=== PATIENT | male | born 1970 | race Caucasian/White ===

== ENCOUNTER 2016-10-26 16:14 | Emergency (ER) | payer BC ==
[2016-10-26 19:01] VITALS: BP 140/87
== END 2016-10-26 19:01 | disposition short-term general hospital (02) ==
LOC: ED 16:14
DX: S62.512B Displaced fracture of proximal phalanx of left thumb, initial encounter for open fracture (principal); R55 Syncope and collapse; S01.81XA Laceration without foreign body of other part of head, initial encounter; W22.8XXA Striking against or struck by other objects, initial encounter; Y99.8 Other external cause status; Y93.89 Activity, other specified; Y92.89 Other specified places as the place of occurrence of the external cause
CPT/HCPCS: 90715; J0690; J2405; J3010; J7030